=== PATIENT | female | born 1975 | race Caucasian/White ===

== ENCOUNTER 2020-11-17 11:24 | Emergency (ER) | payer OTHER ==
[~2020-11-17 11:24] MED LIST: COLACE 100MG C100 MG PO; COMBIVENT0.074 GM/I INH; ECOTRIN81 MG PO; IBUPROFEN800 MG PO; KLONOPIN TAB 00.5 MG PO; LOPRESSOR 25 MG25 MG PO; NEURONTIN 400400 MG PO; NORCO 5-325 TA1 EACH PO; VENTOLIN HFA 66.7 GM INH; VITAMIN D250000 UNIT PO
== END 2020-11-17 14:26 | disposition home or self-care (01) ==
LOC: ER1 11:24
DX: M25.461 Effusion, right knee (principal); J44.9 Chronic obstructive pulmonary disease, unspecified; Z85.41 Personal history of malignant neoplasm of cervix uteri
CPT/HCPCS: 73564; 93971; 99284